=== PATIENT | male | born 1995 | race Caucasian/White ===

== ENCOUNTER → 2019-09-08 14:09 | Outpatient (CLI) | payer SELFPAY ==
[2019-09-08 16:32] LABS: Free T3, Triiodothyronine Free 3.86 pg/mL (2.77-5.27); Free T4, Direct Thyroxine 1.51 ng/dL (0.78-2.19)
[2019-09-08 16:45] LABS: Thyroid Stimulating Hormone 0.48 uIU/mL (0.47-4.68)
== END ==
PROVIDERS: PCP Family Medicine; Visit Provider Hospitalist
DX: E03.9 Hypothyroidism, unspecified (principal)
CPT/HCPCS: 36415; 84439; 84443; 84481

== ENCOUNTER → 2020-10-11 10:09 | Outpatient (CLI) | payer SELFPAY ==
[2020-10-11 12:08] LABS: Free T3, Triiodothyronine Free 3.72 pg/mL (2.77-5.27); Free T4, Direct Thyroxine 1.76 ng/dL (0.78-2.19)
[2020-10-11 12:22] LABS: Thyroid Stimulating Hormone 0.079 uIU/mL (0.47-4.68)
== END ==
PROVIDERS: PCP Family Medicine; Referring Provider Family Medicine; Visit Provider Family Medicine
DX: E03.9 Hypothyroidism, unspecified (principal)
CPT/HCPCS: 36415; 84439; 84443; 84481

== ENCOUNTER → 2022-01-30 11:51 | Outpatient (CLI) | payer SELFPAY ==
[2022-01-30 12:31] LABS: Semen Sperm Prescence Post-Vas Absent (ABSENT)
== END ==
PROVIDERS: PCP Family Medicine; Referring Provider Family Medicine; Visit Provider Family Medicine
DX: Z30.2 Encounter for sterilization (principal)
CPT/HCPCS: 89321

== ENCOUNTER → 2023-10-25 11:25 | Outpatient (CLI) | payer SELFPAY ==
[2023-10-25 13:22] LABS: Free T3, Triiodothyronine Free 3.76 pg/mL (2.77-5.27); Free T4, Direct Thyroxine 1.68 ng/dL (0.78-2.19)
[2023-10-25 13:36] LABS: Thyroid Stimulating Hormone 0.142 uIU/mL (0.47-4.68)
== END ==
PROVIDERS: PCP Family Medicine; Referring Provider Family Medicine; Visit Provider Family Medicine
DX: E03.1 Congenital hypothyroidism without goiter (principal)
CPT/HCPCS: 36415; 84439; 84443; 84481

== ENCOUNTER → 2023-12-25 10:42 | Outpatient (CLI) | payer SELFPAY ==
[2023-12-25 12:22] LABS: Thyroid Stimulating Hormone 4.95 uIU/mL (0.47-4.68)
== END ==
PROVIDERS: PCP Family Medicine; Referring Provider Family Medicine; Visit Provider Family Medicine
DX: E03.1 Congenital hypothyroidism without goiter (principal)
CPT/HCPCS: 36415; 84443

== ENCOUNTER → 2024-02-05 10:52 | Outpatient (CLI) | payer OTHER, SELFPAY ==
[2024-02-05 13:11] LABS: Thyroid Stimulating Hormone 4.61 uIU/mL (0.47-4.68)
== END ==
LOC: LAB 10:54
PROVIDERS: PCP Family Medicine; Referring Provider Family Medicine; Visit Provider Family Medicine
DX: E03.1 Congenital hypothyroidism without goiter (principal)
CPT/HCPCS: 36415; 84443